=== PATIENT | male | born 1960 | race Caucasian/White ===

== ENCOUNTER 2018-05-27 08:24 | Outpatient (CLI) | payer BC ==
--- NOTE | 2018-05-27 09:21 | RAD ---
CHEST 2 VIEWS: DATE: 05/27/2018. COMPARISON: None. HISTORY: Chest pain. FINDINGS: Cardiac silhouette appears prominent. No pneumothorax, pleural fluid, lobar consolidation, or alveol ar edema. There is a partially visualized LAP band overlying the region of the gastroesophageal junc tion. IMPRESSION: No acute findings. POS: [facility]
== END 2018-05-27 08:25 | disposition home or self-care (01) ==
LOC: RAD-FRANK 08:24
PROVIDERS: ATTEND Nurse Practitioner Family
DX: R07.9 Chest pain, unspecified (principal)
CPT/HCPCS: 71046

== ENCOUNTER 2021-06-11 08:18 | Outpatient (CLI) | payer BC | END 2021-06-11 08:19 | disposition home or self-care (01) | LOC: TBSIIMAG 08:18 | PROVIDERS: ATTEND Anesthesiology Pain Medicine | DX: M51.16 Intervertebral disc disorders with radiculopathy, lumbar region (principal); M48.061 Spinal stenosis, lumbar region without neurogenic claudication; M48.07 Spinal stenosis, lumbosacral region | CPT/HCPCS: 72148 ==

== ENCOUNTER 2021-10-05 11:08 | Outpatient (CLI) | payer BC ==
[2021-10-05 13:13] LABS: Anion Gap 15 mmol/L (10-20); BUN (Urea Nitrogen) 10 mg/dL (8.4-25.7); Calc. Creatinine Clearance 0 mL/min (70-130); Calcium 9.3 mg/dL (7.8-10.44); Carbon Dioxide 26 mmol/L (22-29); Chloride 103 mmol/L (98-107); Estimated GFR 101; Glucose 96 mg/dL (70-105); Sodium 140 mmol/L (136-145)
== END 2021-10-05 11:09 | disposition home or self-care (01) ==
LOC: LABBT 11:08
PROVIDERS: ATTEND Neurological Surgery
DX: Z01.818 Encounter for other preprocedural examination (principal); M54.16 Radiculopathy, lumbar region; Z20.822 Contact with and (suspected) exposure to COVID-19
CPT/HCPCS: 80048; 87811; 93005; 93010

== ENCOUNTER 2021-11-14 06:56 | Day surgery (SDC) | payer BC ==
[2021-10-08 14:26] VITALS: BMI 45.3
[2021-11-14] MEDS ORDERED: fentaNYL Citrate/PF 100 MCG/2 ML SYRINGE ONE (08:48)
[2021-11-14] MEDS ORDERED: EPINEPHrine 1 MG/ML AMP ONE (08:56)
[2021-11-14] MEDS ORDERED: Thrombin 5000 UNITS/5 ML VIAL ONE (08:56)
[2021-11-14] MEDS ORDERED: Bupivacaine PF 0.5% 30 ML VIAL ONE (08:56)
[2021-11-14] MEDS ORDERED: CEFAZOLIN 2 GM VIAL ONE (09:15)
[2021-11-14] MEDS ORDERED: Sodium Chloride 0.9% 100 ML ONE (09:15)
[2021-11-14] MEDS ORDERED: Rocuronium Bromide 10 MG/ML (10ML VIAL) ONE (09:17)
[2021-11-14] MEDS ORDERED: PROPOFOL 200 MG/20 ML VIAL ONE (09:17)
[2021-11-14] MEDS ORDERED: Lidocaine 1% MPF 2 ML VIAL ONE (09:17)
[2021-11-14] MEDS ORDERED: ePHEDrine 50 MG/ML VIAL ONE (09:17)
[2021-11-14] MEDS ORDERED: Ondansetron PF 4 MG/2 ML Vial ONE (09:17)
[2021-11-14] MEDS ORDERED: Dexamethasone 20 MG/5 ML VIAL ONE (09:17)
[2021-11-14] MEDS ORDERED: SUGAMMADEX SODIUM 200 MG/2 ML VIAL ONE (10:58)
[2021-11-14] MEDS ORDERED: HYDROmorphone 2 MG/ML VIAL ONE (10:58)
[2021-11-14] MEDS ORDERED: Fentanyl 100 MCG/2 ML VIAL ONE ×2 (11:49→12:11)
[2021-11-14] MEDS ORDERED: Tamsulosin HCl 0.4 MG CAP ONE (12:50)
== END 2021-11-14 14:30 | disposition home or self-care (01) ==
LOC: SDC 06:56
PROVIDERS: ATTEND Neurological Surgery
PROC: 01NB0ZZ Release Lumbar Nerve, Open Approach (ICD-10-PCS; principal; 2021-11-14)
DX: M51.16 Intervertebral disc disorders with radiculopathy, lumbar region (principal); Q76.49 Other congenital malformations of spine, not associated with scoliosis; M47.26 Other spondylosis with radiculopathy, lumbar region; J45.909 Unspecified asthma, uncomplicated; I10 Essential (primary) hypertension; Z79.82 Long term (current) use of aspirin; Z79.899 Other long term (current) drug therapy; Z88.0 Allergy status to penicillin
CPT/HCPCS: 76000; J0171; J0690; J1100; J1170; J2405; J2704; J3010; J3490; S0020

== ENCOUNTER 2023-02-18 11:00 | Outpatient (CLI) | payer OTHER | END 2023-02-18 11:01 | disposition home or self-care (01) | LOC: BICRAD 11:00 | PROVIDERS: ATTEND Nurse Practitioner Family | DX: J16.8 Pneumonia due to other specified infectious organisms (principal) | CPT/HCPCS: 71046 ==